=== PATIENT | female | born 1990 | race Caucasian/White ===

== ENCOUNTER 2018-06-15 00:31 | Inpatient (IN) | payer BC, OTHER ==
[~2018-06-15] VITALS: Ht 160 cm; Wt 54.4 kg
--- NOTE | 2018-06-15 01:05 | NUR ---
Pre-Assessment Patient is a 27 yr old female who has presented to [facility] today for a medically supervised withdrawal from Heroin. Pt is awake, alert, lethargic, easily confused, and distracted. Denies any withdrawal symptoms at this time. She states she smokes 1/3 gram daily for the past 2 months and her last use was 06/14/18 around 2300. VS S= BP 105/74, HR 85, RR 18, T 98.2, O2 SATS 97% on RA , 0/10 pain. She is full code, NKA, regular diet Will do a complete assessment when patient arrives on floor, room 309.
[2018-06-15 01:15] VITALS: BP 105/74
[2018-06-15] MEDS ORDERED: MAG HYDROX/AL HYDROX/SIMETH 30 ML LIQUID UDC PO PRN (01:15)
[2018-06-15] MEDS ORDERED: LOPERAMIDE HCL 2 MG CAPSULE PO PRN ×2 (01:15)
[2018-06-15] MEDS ORDERED: ACETAMINOPHEN 325 MG TABLET PO PRN (01:15)
[2018-06-15] MEDS ORDERED: CLONIDINE HCL 0.1 MG TABLET PO PRN (01:15)
[2018-06-15] MEDS ORDERED: ONDANSETRON ODT 4 MG TAB.RAPDIS SL PRN (01:15)
[2018-06-15] MEDS ORDERED: MAGNESIUM HYDROXIDE 30 ML LIQUID UDC PO PRN (01:15)
[2018-06-15] MEDS ORDERED: ONDANSETRON 4 MG/2 ML VIAL IM PRN (01:15)
[2018-06-15] MEDS ORDERED: MIRALAX 17 GM POWD.PACK PO PRN (01:15)
--- NOTE | 2018-06-15 01:16 | NUR ---
COWS 5 Pt awake, oriented, lethargic, guarded, and distracted. Denies signs and symptoms of withdrawal at this time. Continue to monitor.
[2018-06-15 01:45] LABS: *AMPHETAMINE, URINE NEGATIVE (NEGATIVE); *BARBITURATE, URINE NEGATIVE (NEGATIVE); *CANNABINOID, URINE NEGATIVE (NEGATIVE); *COCCAINE, URINE NEGATIVE (NEGATIVE); *OPIATE, URINE POSITIVE (NEGATIVE); *PHENCYCLIDINE SCREEN,URINE NEGATIVE (NEGATIVE)
[2018-06-15 01:52] LABS: *URINE HCG, QUAL NEGATIVE (NEGATIVE)
[2018-06-15 01:57] LABS: ETHANOL < 3 MG/DL (0-0)
[2018-06-15 01:58] LABS: ALANINE AMINOTRANSFERASE 27 U/L (14-59); ALKALINE PHOSPHATASE 15 U/L (50-136); AMYLASE 61 U/L (25-115); ASPARTATE AMINOTRANSFERASE 16 U/L (15-37); BASOPHILS # (AUTO) 0.1 K/uL (0.0-8.0); BASOPHILS % (AUTO) 0.7 % (0.0-2.0); BILIRUBIN,TOTAL 0.2 mg/dL (0.2-1.0); CARBON DIOXIDE 29 mmol/L (21-32); CHLORIDE 103 mmol/L (98-107); CREATININE 0.7 mg/dL (0.6-1.3); EOSINOPHILS # (AUTO) 0.6 K/uL (0.0-0.7); EOSINOPHILS % (AUTO) 8.5 % (0.0-7.0); GLUCOSE 83 mg/dL (74-106); HEMATOCRIT 41.4 % (31.2-41.9); HEMOGLOBIN 14.1 g/dL (10.9-14.3); LIPASE 136 U/L (73-393); LYMPHOCYTES # (AUTO) 2.5 K/uL (20.0-40.0); MAGNESIUM 1.9 mg/dL (1.8-2.4); MEAN CORPUSCULAR HEMOGLOBIN 31.3 uug (24.7-32.8); MEAN CORPUSCULAR HGB CONC 34 g/dL (32.3-35.6); MEAN CORPUSCULAR VOLUME 91.6 fL (75.5-95.3); MONOCYTES # (AUTO) 0.7 K/uL (2.0-10.0); MONOCYTES % (AUTO) 10.2 % (0.0-11.0); NEUTROPHILS # (AUTO) 3.2 K/uL (1.8-8.9); NEUTROPHILS % (AUTO) 45.6 % (38.5-71.5); PLATELET COUNT (AUTO) 272 K/uL (179-408); POTASSIUM 3.7 mmol/L (3.5-5.1); RED BLOOD CELL COUNT(AUTO) 4.52 MIL/uL (3.63-4.92); TOTAL PROTEIN, SERUM 6.5 g/dL (6.4-8.2); UREA NITROGEN, BLOOD 13 mg/dL (7-18); WHITE BLOOD COUNT (AUTO) 7.1 K/uL (3.8-11.8)
--- NOTE | 2018-06-15 02:00 | NUR ---
Admission Note Patient is a 27 yr old female who presents to [facility] for medically supervised withdrawal for a recent relapse of Opiates (Heroin). Pt was escorted on to the unit at 0115 by a female DENTAL TECHNICIAN INSTRUCTOR. Pt is ambulatory with a steady gait. Pt was cooperative with body check and skin check. A small pimple scab noted to mid back, otherwise skin intact. Pt is awake and oriented. Pt is lethargic, withdrawn, guarded, and distracted. Pt is unkempt and odorous. Pt denies any symptoms of withdrawal at this time. VSS BP 105/74, HR 85, RR 16, T 98.2, O2 Sat 97% RA, Pain 0/10, and COWS 5. Pt was oriented to unit, room, and equipment. Substance Abuse History: Heroin 0.33 gm daily for the past 2 months via inhalation. Last use was 06/14/18 about 2300. First use was one time at age 19. At age 25 started daily use for a period of 1.5 years. Eleven months ago was treated at [facility] in [place]. She spent 2 months in rehab, transitioned to sober living for 5 months and remained sober for an additional 2 months. Medical History: Asthma: which she has prescribed inhalers. Does not recall name and did not bring with her. Anxiety/Depression: no prescribed medications Attention Deficit Disorder: which she has prescribed Adderall. Does not recall dose or last use and did not bring with her. 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 Last seizure was 2 months ago. History of fracture to right foot which did not require surgery. History of 5150 in 2012 related to psychiatric episode Denies having a PCP. Admits to Psychiatrist, however does not recall the name. When asked why she came to [facility] today she replied It sucks now. I experimented when i was younger. My family made me get treatment, but now I came on my own. When asked about plan for continued sobriety she replied, I dont want to go to a rehab; I just want to go to meetings. Stated she had a sponsor and attended daily meetings prior to this relapse. Pt is reluctant to talk about family. States she does have support with a male friend. When asked about living arrangements she stated she is homeless and rented a car to get here this evening. Her occupation is a dancer and refused further inquiry. All information was relayed to MD and received orders for PRN medications for increased signs and symptoms of withdrawal. Labs ordered and completed. Educated patient on plan of care: including detox, group therapy, individual therapy, and discharge planning. Pt verbalized understanding and agrees to comply with treatment. Left pt in bed low position, padded side rails up x 2, and call riley in reach. Pt agrees to call for assistance if needed. Will continue to monitor
[2018-06-15 02:09] LABS: THYROID STIMULATING HORMONE 2.266 mIU/mL (0.358-3.740)
--- NOTE | 2018-06-15 04:00 | NUR ---
COWS deferred/Vitals refused Pt resting in bed with eyes closed. Respirations even and unlabored. No signs or symptoms of withdrawal noted. COWS deferred and pt refused vitals. Continue to monitor.
--- NOTE | 2018-06-15 06:39 | NUR ---
End of Shift Endorsing 27 year old female patient admitted 06/15/18 to [facility] for medically supervised withdrawal from Opiates. Pt did not exhibit any signs or symptoms of withdrawal and no PRN medications were given on assembler 1st shift. Last COWS 5@0130. Pt resting with eyes closed. Respirations are even and unlabored. Bed low, side rails up x 2, and call riley in reach. PO intake 355 ml, voided x 1, BM x 0, and slept x 5 hours.
--- NOTE | 2018-06-15 07:30 | NUR ---
START OF SHIFT NOTE Received report from night nurse, 27 year old female admitted for Opioids withdrawals. Patient currently not on any taper but PRN'S available for increased s/s of withdrawal. Per endorsement patient did not receive any PRN and last COWS score was-5, slept for 5 hours. Received patient asleep responsive to verbal and tactile stimuli. Breathing normal no SOB noted respiration even non labored. . Skin intact warm and dry to touch. All safety measures in place. Will cont with plan of care.
[2018-06-15 08:00] VITALS: BP 104/62
[2018-06-15] MEDS: BUPRENORPHINE HCL 2 MG TAB.SUBL SL PRN ×2 (08:43→20:06)
[2018-06-15] MEDS: HYDROXYZINE PAMOATE 25 MG CAPSULE PO PRN ×2 (08:43→20:05)
[2018-06-15] MEDS: METHOCARBAMOL 750 MG TABLET PO PRN ×2 (08:43→20:04)
[2018-06-15] MEDS: IBUPROFEN 400 MG TABLET PO PRN (08:43)
--- NOTE | 2018-06-15 08:43 | NUR ---
COWS ASSESSMENT/ PRN MEDICATIONS Patient presented with flushed face, anxious, restless, agitated, crying, myalgia, lower back pain, restless legs, runny nose, COWS score noted 13. PRN Subutex 4mg SL, Robaxin, Vistaril, Motrin was administered as ordered. Will cont to monitor and reassess. Addendum: 06/15/18 at 1055 by WILIAN WINSLOW LVN Correction-Lower back pain 01/19.
--- NOTE | 2018-06-15 09:13 | NUR ---
SUBUTEX REASSESSMENT COWS score noted 10, patient verbalized Subutex was effective in controlling her s/s of withdrawal.
--- NOTE | 2018-06-15 09:43 | NUR ---
PRN MEDS REASSESSMENT Patient noted resting comfortably in her room stated feeling less anxious, agitated, current lower back pain 2/10, myalgia subsided. Medications were effective.
[2018-06-15] MEDS ORDERED: BUPRENORPHINE HCL 2 MG TAB.SUBL SL PRN (11:45)
[2018-06-15 12:00] VITALS: BP 106/71
--- NOTE | 2018-06-15 12:00 | NUR ---
COWS ASSESSMENT Patient continues to exhibited s/s of anxiety, restless, agitated, anhedonia, stomach cramps, yawning, restless legs, runny nose, COWS score noted 11. Will cont to monitor.
[2018-06-15 16:00] VITALS: BP_SYST 147; BP_SYST 94; BP_DIAS 102; BP_DIAS 57
--- NOTE | 2018-06-15 19:00 | NUR ---
Start of Shift Received 27 year old female patient admitted 06/15/18 to [facility] for medically supervised withdrawal from Opiates. Currently pt has PRN medications available for s/s of withdrawal and to start a 4 day Subutex taper in am 06/16/18. Pt received PRN Subutex, Robaxin, Motrin, and Vistaril on day shift. Last COWS 11 @1600. Pt in dark room resting in bed. Pt is anxious, withdrawn, guarded and flat affect. Bed is low, padded side rails up x 2, and call riley in reach. Will continue to monitor.
--- NOTE | 2018-06-15 19:02 | NUR ---
END OF SHIFT NOTE Gave report to night nurse, 27 year old female admitted for Opioids withdrawal and Subutex taper to be start in AM. PRN available for increased s/s of withdrawal. Skin intact warm and dry tot ouch. Patient presented with sad facial expression, anxious, irritable and disorganized, anhedonia, depressed mood, anxious, agitated, yawning, flushed face, restless, chills, body aches, myalgia, bilateral hand tremors. Patient was given PRN Subutex, Robaxin, Vistaril, Motrin noted to be effective. Patient was not well enough to participates in group today and rested in her room most of the shift. Appetite good, encourage PO fluids as tolerated. Vital signs WNL. Patient denies any SI/HI. Last COWS score was 11 at 1600. All needs attended and met. All safety measures in place. Endorse patient to night nurse in stable condition.
[2018-06-15 20:00] VITALS: BP 115/65
--- NOTE | 2018-06-15 20:00 | NUR ---
COWS 14 Pt anxious, agitated, sweating, chills, stomach cramps, and generalized pain 8/10.
--- NOTE | 2018-06-15 20:04 | NUR ---
PRN Bentyl/Robaxin/Vistaril/Subutex Pt anxious, agitated, sweating, chills, stomach cramps, and generalized pain 03/21. Medications given per order. 14. Will monitor effect.
[2018-06-15] MEDS: DICYCLOMINE HCL 20 MG TABLET PO PRN (20:06)
--- NOTE | 2018-06-15 21:04 | NUR ---
Reassess PRN Bentyl/Robaxin/Vistaril/Subutex Medication effective. Pt resting with eyes closed. Respirations are even and unlabored. Will continue to monitor.
--- NOTE | 2018-06-16 06:45 | NUR ---
End of Shift Endorsing 27 year old female patient admitted 06/15/18 to [facility] for medically supervised withdrawal from Opiates. Currently pt has PRN medications available for s/s of withdrawal and to start a 4 day Subutex taper today 06/16/18. Pt received PRN Subutex, Robaxin, Vistaril, and Bentyl on night shift supervisor. Last COWS 14 @1999. PO intake 1565 ml, voided x 4, BM x 1, and slept 11 hours. Pt resting with eyes closed. Respirations are even and unlabored. Bed is low, padded side rails up x 2, and call riley in reach.
--- NOTE | 2018-06-16 07:30 | NUR ---
START OF SHIFT NOTE Received report from night nurse, 27 year old female admitted for Opioids withdrawals. Patient to be start on 4 days Subutex taper today. Per endorsement patient received PRN Subutex, Bentyl, Robaxin, Vistaril and last COWS score was-14, slept for 11 hours. Received patient asleep responsive to verbal and tactile stimuli. Breathing normal no SOB noted respiration even non labored. Skin intact warm and dry to touch. All safety measures in place. Will cont with plan of care.
[2018-06-16 08:00] VITALS: BP 113/64
[2018-06-16] MEDS: BUPRENORPHINE HCL 2 MG TAB.SUBL SL SCH ×3 (08:51→20:33)
--- NOTE | 2018-06-16 08:57 | NUR ---
COWS ASSESSMENT COWS score noted 13. Patient presented with flushed face, unkempt, anxious, restless, agitated, anhedonia, general body aches, restless legs, runny nose. Patient was given her schedule medications. Will cont to monitor and reassess
[2018-06-16] MEDS ORDERED: 4 DAY TAPER BUPRENORPHINE -SERENITY PROTOCOL SL PRN (09:00)
[2018-06-16] MEDS ORDERED: TUBERCULIN,PURIF.PROT.DERIV. 5 TU/0.1 ML TEST ID ONE (09:00)
[2018-06-16 12:00] VITALS: BP 108/66
[2018-06-16] MEDS: IBUPROFEN 400 MG TABLET PO PRN (13:15)
[2018-06-16] MEDS: HYDROXYZINE PAMOATE 25 MG CAPSULE PO PRN (13:15)
--- NOTE | 2018-06-16 13:15 | NUR ---
PRN MOTRIN/VISTARIL Patient reported headache and increased in anxiety, agitation, restless, sweats. PRN Motrin 400mg PO and Vistaril 50mg PO administered as ordered. Will cont to monitor and reassess. Addendum: 06/16/18 at 1529 by WILIAN WINSLOW LVN Correction- Headache was 11/19.
--- NOTE | 2018-06-16 14:00 | NUR ---
COWS ASSESSMENT Patient continues to exhibited s/s of withdrawal such as anxiety, restless, agitated, anhedonia, general body aches, restless legs, runny nose. Patient was given her schedule medications. Will cont to monitor and reassess.
--- NOTE | 2018-06-16 14:15 | NUR ---
MOTRIN/VISTARIL REASSESSMENT Patient reported medications were effective headache lower to 2/10, and feeling less anxious and agitated.
[2018-06-16 16:00] VITALS: BP 109/68
[2018-06-16] MEDS: METHOCARBAMOL 750 MG TABLET PO PRN (16:34)
--- NOTE | 2018-06-16 16:34 | NUR ---
PRN ROBAXIN Patient c/o of myalgia 12/19. PRN Robaxin 750mg PO given as ordered. Will cont to monitor.
--- NOTE | 2018-06-16 17:34 | NUR ---
ROBAXIN REASSESSMENT Patient reported medication was effective myalgia lowert o 09/21
--- NOTE | 2018-06-16 19:01 | NUR ---
END OF SHIFT NOTE Gave report to night nurse, 27 year old female admitted for Opioids withdrawal and Subutex taper started this morning tolerating well. Patient appears flushed, odors, sad facial expression, anxious, irritable and disorganized, anhedonia, depressed mood, anxious, agitated, yawning, flushed face, restless, chills, body aches, myalgia, bilateral hand tremors. Patient was given PRN Vistaril, Motrin, Robaxin noted to be effective. Patient reported that "she is feeling weak and did not want to go to the groups". Educated patient to attend group and activities to learn new coping skills, patient verbalized understanding. Appetite good, encourage PO fluids as tolerated. Vital signs WNL. Patient denies any SI/HI. Skin intact warm and dry to touch. Last COWS score was 11 at 1600. All needs attended and met. All safety measures in place. Endorse patient to night nurse in stable condition.
--- NOTE | 2018-06-16 19:30 | NUR ---
START OF SHIFT Received patient lying in bed with eyes closed and respirations even and unlabored. Per endorsement, patient is a 27 yr old admit with a past medical history asthma, depression, ADD, and anxiety. Patient appears drowsy and with low energy. Patient also noted to be in depressed mood and appears disheveled. She was admitted for ETOH withdrawal and is on a 5 day Subutex taper. Her last COWS score was 11 @ 1600. Will continue to monitor.
[2018-06-16 20:11] VITALS: BP 94/58
--- NOTE | 2018-06-17 | NUR ---
COWS AND VITALS DEFERRED Patient noted to be lying in bed with eyes closed and respirations even and unlabored. No apparent S/S of distress or pain noted. Vitals signs refused and COWS assessment deferred. Will continue to monitor.
[2018-06-17 04:00] VITALS: BP 99/61
--- NOTE | 2018-06-17 04:00 | NUR ---
COWS=9 Patient continues to be isolative, melancholic and in a depressed mood. Patient verbalized feeling "tired and just having no energy". Patient also with tremors and anxiety.
[2018-06-17 04:08] LABS: HEPATITIS B SURFACE AG Negative (Negative)
--- NOTE | 2018-06-17 07:03 | NUR ---
END OF SHIFT Patient is noted to be lying in bed with eyes closed and even, unlabored respirations. Pt is a 27 year old female with a past medical history of asthma, depression, ADD, and anxiety. No PRNs administered this shift. No signs of symptoms of distress or pain noted. Patient continues her 5 day subutex taper. Last COWS was 9 at 0400. Bilateral side rails up, bed in a locked low position. Patient slept for 9 hours. Endorsed to oncoming AM nurse.
--- NOTE | 2018-06-17 07:25 | NUR ---
Start Of Shift Patient is a 27 yr old female who was admitted to [facility] on 06/15/18 for a medically supervised withdrawal from Opiates ( heroin), she has been placed on a5 day Subutex taper and this is day 2. No PRN medications were required or requested on PM shift, she slept for 9 hours and last COWS was 9. Currently she is asleep in bed, breathing even and unlabored, side rails upx2 and call light within reach. Continue to follow MD finley of care and offer support and encouragement as needed.
[2018-06-17 08:03] VITALS: BP 96/74
[2018-06-17] MEDS: METHOCARBAMOL 750 MG TABLET PO PRN (08:36)
[2018-06-17] MEDS: HYDROXYZINE PAMOATE 25 MG CAPSULE PO PRN ×2 (08:36→14:31)
--- NOTE | 2018-06-17 08:38 | NUR ---
COWS 9/ PRN Patient displays myalgia, restlessness, increased anxiety, stuffy nose and fatigue Vistaril 50mg PO and [id number] PO PRN given
[2018-06-17] MEDS ORDERED: BUPRENORPHINE HCL 2 MG TAB.SUBL SL SCH (09:00)
--- NOTE | 2018-06-17 09:38 | NUR ---
PRN Reassess Patient states Vistaril 50mg PO PRN was effective in reducing her anxiety and Robaxin 750mg PO PRN was effective in relieve her muscle aches.
[2018-06-17 12:00] VITALS: BP 88/55
--- NOTE | 2018-06-17 12:13 | NUR ---
COWS 9 Patient displays myalgia, restlessness, increased anxiety, stuffy nose and fatigue Vistaril 50mg PO and [id number] PO PRN given @ 0840 with positive results
[2018-06-17] MEDS: BUPRENORPHINE HCL 2 MG TAB.SUBL SL SCH ×2 (14:31→20:56)
[2018-06-17] MEDS: IBUPROFEN 400 MG TABLET PO PRN (14:31)
--- NOTE | 2018-06-17 14:34 | NUR ---
PRN Motrin 400mg PO given for muscle aches 4/10 Vistaril 50mg PO given for anxiety
--- NOTE | 2018-06-17 15:35 | NUR ---
PRN Reassess Patient states medications were effective in reducing muscle aches and anxiety
--- NOTE | 2018-06-17 15:54 | NUR ---
Therapist prompted client to attend group therapy.
[2018-06-17 16:00] VITALS: BP 83/51
--- NOTE | 2018-06-17 16:00 | NUR ---
COWS 9 Patient displays myalgia, restlessness, increased anxiety, stuffy nose and fatigue Motrin 400mg Po given for muscle aches and Vistaril 50mg Po PRN was given @ 1435 with positive results
--- NOTE | 2018-06-17 18:55 | NUR ---
End Of Shift Patient is a 27 yr old female who was admitted to [facility] on 06/15/18 for a medically supervised withdrawal from Opiates ( heroin ), she continues on a 5 day Subutex taper. PRN medications given this shift: Vistaril x2, Robaxin and Motrin. She displays a flat depressed affect, avoids eye contact and isolates in her room, her withdrawal symptoms include stuffy nose, aching joints and increased anxiety and irritability and she can be emotionally volatile at times. She had a fluid intake of 2163ML, 3 Voids and 0 BM, her last COWS was 9 @ 1600. Continue to follow MD plan alejandro care and offer support and encouragement. [facility]ed to [facility] shift [facility].
--- NOTE | 2018-06-17 19:30 | NUR ---
START OF SHIFT Received patient lying in bed with eyes closed and respirations even and unlabored. Vitals taken and are within normal limits. Per endorsement, client is a 27 year old female admitted for medically supervised detox of heroin with secondary diagnoses of asthma, depression, anxiety, and ADD. Additionally per endorsement, client slept for a majority of the AM shift. Patient is on her second out of 5 days of Subutex taper. Will continue to monitor.
[2018-06-17 20:00] VITALS: BP 100/54
--- NOTE | 2018-06-17 20:00 | NUR ---
COWS=9 Patient continues to reports symptoms of myalgia, stuffy nose, fatigue, anxiety, restlessness, and agitation. Will continue to monitor.
--- NOTE | 2018-06-18 | NUR ---
COWS AND VITALS DEFERRED Patient noted lying in bed with eyes closed and even, unlabored respirations. Bed in a low, locked position with bilateral side rails up. Vital signs refused and COWS assessment deferred. Will continue to monitor.
--- NOTE | 2018-06-18 06:49 | NUR ---
PRN RE-ASSESSMENT Patient is sleeping. RR:14. Respirations are even and unlabored. PRN Afrin Nasal 0.05% [place] for nasal congestion administered for nasal congestion at 0549 was effective. Safe and calm environment provided. All needs met. Safety measures in place: Call light within reach, bed is in lowest position, and locked, padded bedrails up bilaterally. Will continue to monitor.
--- NOTE | 2018-06-18 07:09 | NUR ---
END OF SHIFT Patient is noted lying in bed with eyes closed and respirations even and unlabored. No complaints of distress or pain raised throughout the shift. Patient slept for 10 hours and 45 minutes. Patient noted to be lethargic, apathetic to conversation and care, and drowsy for majority of the shift. Last COWS score was 9 taken at 2000. Endorsed to oncoming AM shift nurse.
--- NOTE | 2018-06-18 07:15 | NUR ---
Start of Shift. Pt. is a 27 y/o female admitted for the medically managed withdrawal from Opiates. Pt. was placed on a 5 day Subutex taper to manage withdrawal symptoms. Endorse from previous shift pt. is isolative and withdrawn with poor visibility on the unit. Received pt. in room. Pt. in bed with eyes closed. Pt. appears disheveled with linens cluttered all about her bed and falling of the sides. No signs of SOB noted. Safety measures in place. Will continue to monitor pt.s behavior for safety.
[2018-06-18 08:00] VITALS: BP 101/59
--- NOTE | 2018-06-18 08:00 | NUR ---
COWS Assessment COWS of 8. Pt. is room laying in bed presenting with anxiety, body aches, nasal congestion, and irritability. Will give medications as ordered will continue to monitor pt.'s behavior for safety.
[2018-06-18] MEDS: BUPRENORPHINE HCL 2 MG TAB.SUBL SL SCH ×3 (08:43→20:04)
--- NOTE | 2018-06-18 10:38 | NUR ---
Therapist prompted client to attend group therapy sessions, and client stated that she is not interested.
[2018-06-18 12:00] VITALS: BP 100/56
--- NOTE | 2018-06-18 12:00 | NUR ---
COWS Assessment COWS of 8. Pt. is room laying in bed presenting with anxiety, body aches, nasal congestion, and irritability. Pt. compliant with medication regiment and treatment plan. Will continue to monitor pt.'s behavior for safety.
[2018-06-18] MEDS: OXYMETAZOLINE NASAL 0.05% 15 ML SPRAY NS PRN (15:06)
[2018-06-18] MEDS: METHOCARBAMOL 750 MG TABLET PO PRN ×2 (15:10→22:06)
[2018-06-18] MEDS: IBUPROFEN 400 MG TABLET PO PRN (15:10)
[2018-06-18] MEDS: HYDROXYZINE PAMOATE 25 MG CAPSULE PO PRN ×2 (15:10→22:06)
--- NOTE | 2018-06-18 15:10 | NUR ---
PRN Assessment Pt. in room complaining of allergy symptoms. nasal congestion, body aches and anxiety. PRN Vistaril, Robaxin, Motrin, and Afrin nasal spay given at this time to manage symptoms. Will continue to monitor pt.'s behavior for safety and medication effectiveness.
--- NOTE | 2018-06-18 15:50 | NUR ---
PRN Re-Assessment Pt. in room and reports a reduction in symptoms. Medication effective. Will continue to monitor pt.'s behavior for safety.
[2018-06-18 16:00] VITALS: BP 113/75
--- NOTE | 2018-06-18 16:00 | NUR ---
COWS Assessment COWS of 9. Pt. is room laying in bed presenting with anxiety, body aches, nasal congestion, and irritability. Pt. compliant with treatment plan and medication regiment. Will continue to monitor pt.'s behavior for safety.
--- NOTE | 2018-06-18 19:02 | NUR ---
START OF SHIFT NOTE: Endorsed patient is a 27 year old female presented for Opioid (Heroin) withdrawal, continues ordered 5 day Subutex taper since 06/16/2018, which tolerated well. Withdrawal symptoms will be monitoring closely. Patient is alert and oriented x4: Person, Place, Situation, and Time, noted with anxious mood and flat affect, reports NKA, Regular Diet, is on Full Code, Seizure and Fall Precautions. PMH: Anxiety, Depression, ADD, Asthma, History of Psychogenic Seizure r/t Stress, with last episode 2 months ago. Last COWS=9 at 1600: Throughout the day shift patient experienced anxiety, agitation, depression, irritability, nervousness, enlarged bilateral pupils, nasal congestion, myalgia, mild generalized body and muscle ache, bilateral tremors that can be felt not observe, sweating, restlessness, fatigue, and yawning. PRN Afrin Nasal 0.05% [place] for nasal congestion administrated at 1506, PRN Motrin 400 mg PO administrated for pain at 1510, PRN Robaxin 750 mg PO administrated for myalgia at 1510, PRN Vistaril 50 mg PO administrated for anxiety at 1510, and were effective per outgoing day shift nurse report. Patient remains compliant with treatment, medications, and diet regimen. VSWNL. Respirations are unlabored and even, Abdomen is soft and non-tender, Bowel Sounds are active in all four quadrants, Skin is intact, warm and dry to touch. Encouraged to intake fluids as tolerated. Encouraged to attend group activities. All needs met. Safe and calm environment provided. Safety measures in place: Call light within reach, bed in lowest position, and locked, padded bed rails up bilaterally. Will continue to monitor closely.
--- NOTE | 2018-06-18 19:02 | NUR ---
End of Shift Pt. is a 27 y/o female admitted for the medically managed withdrawal from Opiates. Pt. was placed on a 5 day Subutex taper to manage withdrawal symptoms. Throughout shift presented with anxiety, body aches, agitation, restlessness, and a volatile mood. Safety measures in place. Will endorse pt.'s care to oncoming shift.
[2018-06-18 20:00] VITALS: BP 101/68
--- NOTE | 2018-06-18 20:00 | NUR ---
COWS ASSESSMENT COWS=11: Patient experienced anxiety, agitation, depression, irritability, nervousness, enlarged bilateral pupils, nasal congestion, bilateral tremors that can be felt not observe, sweating, restlessness, fatigue, and yawning. Scheduled and PRN medications will be administrated as ordered. Safe and calm environment provided. Encouraged to intake fluids as tolerated. All needs met. Safety measures in place: Call light within reach, bed in lowest position, and locked, padded bed rails up bilaterally. Will continue to monitor closely.
[2018-06-18] MEDS: diphenhydrAMINE 50 MG CAPSULE PO PRN (20:04)
--- NOTE | 2018-06-18 20:04 | NUR ---
PRN BENADRYL PO ADMINISTRATION: PRN Benadryl 50 mg PO administrated for insomnia at 2004, as ordered. Patient tolerated well. Re-assessment will be done in one hour. Encouraged to intake fluids as tolerated. Safe and calm environment provided. All needs met. Safety measures in place: Call light within reach, bed is in lowest position, and locked, padded bedrails up bilaterally. Will continue to monitor.
--- NOTE | 2018-06-18 21:04 | NUR ---
PRN RE-ASSESSMENT Patient is sleeping. RR:14. Respirations are even and unlabored. PRN Benadryl 50 mg PO administrated for insomnia at 2003 were effective. Safe and calm environment provided. All needs met. Safety measures in place: Call light within reach, bed is in lowest position, and locked, padded bedrails up bilaterally. Will continue to monitor.
--- NOTE | 2018-06-18 22:06 | NUR ---
PRN ROBAXIN PO AND PRN VISTARIL PO ADMINISTRATION: PRN Robaxin 750 mg PO administrated for myalgia at 2206, and PRN Vistaril 50 mg PO administrated for anxiety at 2206, as ordered. Patient tolerated well. Re-assessment will be done in one hour. Encouraged to intake fluids as tolerated. Safe and calm environment provided. All needs met. Safety measures in place: Call light within reach, bed is in lowest position, and locked, padded bedrails up bilaterally. Will continue to monitor.
--- NOTE | 2018-06-18 23:06 | NUR ---
PRN RE-ASSESSMENT Patient is sleeping. RR:15. Respirations are even and unlabored PRN Robaxin 750 mg PO administrated for myalgia at 2206,and PRN Vistaril 50 mg PO administrated for anxiety at 2206, were effective. Safe and calm environment provided. All needs met. Safety measures in place: Call light within reach, bed is in lowest position, and locked, padded bedrails up bilaterally. Will continue to monitor.
--- NOTE | 2018-06-19 | NUR ---
VS REFUSED, COWS DEFERRED VS refused and COWS deferred at 0000 due patient sleeping. Respirations are unlabored and even. RR:17. Assessment will be done and COWS scored while patient will awake. Safe and calm environment provided. All needs met. Safety measures in place: Call light within reach, bed is in lowest position, and locked, padded bedrails up bilaterally. Will continue to monitor.
[2018-06-19 04:00] VITALS: BP 106/69
--- NOTE | 2018-06-19 04:00 | NUR ---
COWS ASSESSMENT COWS=10 ay 0400: Patient noted with anxiety, agitation, depression, irritability, nervousness, enlarged bilateral pupils, nasal congestion, bilateral tremors that can be felt not observe, mild generalized body aches, myalgia, sweating, restlessness, fatigue, and yawning. Safe and calm environment provided. Encouraged to intake fluids as tolerated. All needs met. Safety measures in place: Call light within reach, bed in lowest position, and locked, padded bed rails up bilaterally. Will continue to monitor closely.
[2018-06-19] MEDS: OXYMETAZOLINE NASAL 0.05% 15 ML SPRAY NS PRN ×2 (05:49→20:47)
--- NOTE | 2018-06-19 05:49 | NUR ---
PRN ADMINISTRATION PRN Afrin Nasal 0.05% [place] for nasal congestion administrated at 0549,as ordered. Patient tolerated well. Re-assessment will be done in one hour. Encouraged to intake fluids as tolerated. Safe and calm environment provided. All needs met. Safety measures in place: Call light within reach, bed is in lowest position, and locked, padded bedrails up bilaterally. Will continue to monitor.
--- NOTE | 2018-06-19 07:15 | NUR ---
Start of Shift Pt. is a 27 y/o female admitted for the medically managed withdrawal from Opiates. Pt. was placed on a 5 day Subutex taper to manage withdrawal symptoms. Endorse from previous shift pt. presented with anxiety, agitation, body aches, and restlessness. Received pt. in room. Pt. in bed with her eyes closed. No signs of acute distress noted. Safety measures in place. Will continue to monitor pt.s behavior for safety.
--- NOTE | 2018-06-19 07:23 | NUR ---
END OF SHIFT NOTE: This report given for patient, a 27 year old female, admitted for Opioid (Heroin) withdrawal, and second day continues ordered 5 day Subutex taper, which tolerated well. Withdrawal symptoms was closely monitored. Patient is alert and oriented x4, cooperative, with stable gate, and soft clear speech. Initial COWS=11 at 2000. The most recent COWS=10 at 0400: Patient noted with anxious mood and depressive/flat affect. Patient presented with anxiety, agitation, depression, irritability, nervousness, enlarged bilateral pupils, nasal congestion, myalgia, mild generalized body and muscle ache, bilateral tremors that can be felt not observe, sweating, restlessness, fatigue, and yawning. PRN Benadryl 50 mg PO administrated for insomnia at 2003, PRN Robaxin 750 mg PO administrated for myalgia at 2205, PRN Vistaril 50 mg PO administrated for anxiety at 2205, PRN Afrin Nasal 0.05% [place] for nasal congestion administrated at 0549, and were effective. Patient remains compliant with treatment, medications, and diet regimen. VSWNL. Respirations are unlabored and even. Skin is intact, warm and dry to touch. Encouraged patient to verbalized his feelings. Encouraged to intake fluids as tolerated. Encouraged to attend group activities. Patient slept for 8 hours, intake 1,092 ml, voided x2. Safe and calm environment provided. All needs met. Safety measures in place: Call light within reach, bed is in lowest position, and locked, padded bedrails up bilaterally. Endorsed to day shift nurse.
[2018-06-19 08:00] VITALS: BP 83/49
--- NOTE | 2018-06-19 08:00 | NUR ---
COWS Assessment COWS of 8. Pt. in room presenting anxiety, restlessness, tremors, and stomach cramps. Will give medications as ordered. Will continue to monitor pt.'s behavior for safety.
[2018-06-19] MEDS: HYDROXYZINE PAMOATE 25 MG CAPSULE PO PRN ×2 (08:43→20:48)
[2018-06-19] MEDS: IBUPROFEN 400 MG TABLET PO PRN (08:43)
[2018-06-19] MEDS: METHOCARBAMOL 750 MG TABLET PO PRN ×2 (08:43→20:48)
[2018-06-19] MEDS: DICYCLOMINE HCL 20 MG TABLET PO PRN (08:43)
--- NOTE | 2018-06-19 08:43 | NUR ---
PRN Medications Pt. in room complaining of body aches, anxiety, and stomach cramps. PRN Bentyl, Robaxin, Motrin, and Vistaril. Will continue to monitor pt.'s behavior for safety and medication effectiveness.
[2018-06-19] MEDS ORDERED: BUPRENORPHINE HCL 2 MG TAB.SUBL SL SCH (09:00)
--- NOTE | 2018-06-19 09:30 | NUR ---
PRN Re-Assessment Pt. in room and reports a decrease in symptoms. Medication effective. Will continue to monitor for safety.
[2018-06-19 12:00] VITALS: BP 111/70
--- NOTE | 2018-06-19 12:00 | NUR ---
COWS Assessment COWS of 8. Pt. in room presenting anxiety, restlessness, tremors, and a flat affect. Pt. compliant with medication regiment and treatment plan. Will continue to monitor pt.'s behavior for safety.
[2018-06-19] MEDS ORDERED: HYDR-3895 PO (14:35)
[2018-06-19] MEDS ORDERED: CLON0.1T14 PO (14:35)
[2018-06-19] MEDS ORDERED: DICY20TA28 PO (14:35)
[2018-06-19] MEDS ORDERED: METH-406 PO (14:35)
[2018-06-19] MEDS ORDERED: IBUP-1953 PO (14:35)
[2018-06-19] MEDS ORDERED: DIPH50CA37 PO (14:35)
[2018-06-19 16:00] VITALS: BP 111/73
--- NOTE | 2018-06-19 16:00 | NUR ---
COWS Assessment COWS of 7. Pt. in room presenting anxiety, restlessness, tremors, and a flat affect. Pt. compliant with medication regiment and treatment plan. Will continue to monitor pt.'s behavior for safety.
--- NOTE | 2018-06-19 19:05 | NUR ---
START OF SHIFT NOTE: Presented patient, 27 year old female, completed 5 day Subutex Taper ordered for Opioid (Heroin) withdrawal. The patient tolerated well. Withdrawal symptoms will be closely monitoring. The patient scheduled for discharge tomorrow at 0930. Last COWS=7 at 1617: During the day shift patient experienced anxiety, agitation, depression, irritability, generalized body aches, myalgia, nasal congestion, stomach cramps, nervousness, sweating, tremors that can be felt, not observe, and restlessness. PRN Motrin 400 mg PO administrated for body pain at 0843, PRN Robaxin 750 mg PO administrated for myalgia at 0843, PRN Vistaril 50 mg PO administrated for anxiety at 0843, and were effective per day shift nurse report. Patient remains compliant with treatment, medications, and diet regimen. Respirations are even and unlabored. Skin intact, warm, and dry to touch. Encouraged to fluids intake as tolerated. Encouraged to attend group activities. All needs met. Safety measures in place: Call light within reach, bed is locked, and in the lowest position, and padded bedrails up x2. Safe and calm environment provided. Endorsed by day shift nurse. Will continue to monitor closely.
--- NOTE | 2018-06-19 19:05 | NUR ---
End of Shift Pt. is a 27 y/o female admitted for the medically managed withdrawal from Opiates. Pt. was placed on a 4 day Subutex taper to manage withdrawal symptoms. Throughout shift pt. presented with anxiety, agitation, body aches, and restlessness. No signs of acute distress noted. Safety measures in place. Endorse pt.s care to oncoming shift.
[2018-06-19 20:00] VITALS: BP 106/59
--- NOTE | 2018-06-19 20:00 | NUR ---
COWS ASSESSMENT COWS=8 at 2000: Patient experienced anxiety, agitation, depression, irritability, myalgia, nasal congestion, nervousness, sweating, tremors that can be felt, not observe, and restlessness. Safe and calm environment provided. Encouraged to intake fluids as tolerated. All needs met. Safety measures in place: Call light within reach, bed in lowest position, and locked, padded bed rails up bilaterally. Will continue to monitor closely.
[2018-06-19] MEDS: diphenhydrAMINE 50 MG CAPSULE PO PRN (20:47)
--- NOTE | 2018-06-19 20:48 | NUR ---
PRN ROBAXIN PO, PRN BENADRYL PO, PRN AFRIN NASAL 0.05% [place], AND PRN VISTARIL PO ADMINISTRATION: PRN Robaxin 750 mg PO administered for myalgia at 2047, PRN Vistaril 50 mg PO administered for anxiety at 2047, PRN Afrin Nasal 0.05% [place] for nasal congestion administered at 2047, and PRN Benadryl 50 mg PO administered for insomnia at 2047 as ordered. Patient tolerated well. Re-assessment will be done in one hour. Encouraged to intake fluids as tolerated. Safe and calm environment provided. All needs met. Safety measures in place: Call light within reach, bed is in lowest position, and locked, padded bedrails up bilaterally. Will continue to monitor.
--- NOTE | 2018-06-19 21:48 | NUR ---
PRN RE-ASSESSMENT Patient is sleeping. RR:14. Respirations are even and unlabored. PRN Robaxin 750 mg PO administered for myalgia at 2047, PRN Vistaril 50 mg PO administered for anxiety at 2047, PRN Afrin Nasal 0.05% [place] for nasal congestion administered at 2047, and PRN Benadryl 50 mg PO administered for insomnia at 2047 were effective. Safe and calm environment provided. All needs met. Safety measures in place: Call light within reach, bed is in lowest position, and locked, padded bedrails up bilaterally. Will continue to monitor.
--- NOTE | 2018-06-20 | NUR ---
VS REFUSED, COWS DEFERRED VS refused and COWS deferred at 0000 due patient sleeping. Assessment will be done and COWS scored while patient will awake. Safe and calm environment provided. All needs met. Safety measures in place: Call light within reach, bed is in lowest position, and locked, padded bedrails up bilaterally. Will continue to monitor.
--- NOTE | 2018-06-20 04:00 | NUR ---
VS REFUSED, COWS DEFERRED VS refused and COWS deferred at 0400 due patient sleeping. Assessment will be done and COWS scored while patient will awake. Safe and calm environment provided. All needs met. Safety measures in place: Call light within reach, bed is in lowest position, and locked, padded bedrails up bilaterally. Will continue to monitor.
--- NOTE | 2018-06-20 07:06 | NUR ---
END OF SHIFT NOTE: Endorsed patient, 27 year old female, presented for Opioid (Heroin) withdrawal, completed ordered 5 day Subutex taper. Patient tolerated well. Patient appears alert and oriented x4, cooperative, remains compliant with treatment, medications, and diet regimen. Patent noted with anxious mood and depressive/flat affect. The most recent COWS=8 at 1999. During my shift patient continues experienced withdrawal symptoms such as anxiety, agitation, depression, irritability, nervousness, nasal congestion, myalgia, bilateral tremors that can be felt not observe, sweating, restlessness, and fatigue. PRN Robaxin 750 mg PO administered for myalgia at 2047, PRN Vistaril 50 mg PO administered for anxiety at 2047, PRN Afrin Nasal 0.05% [place] for nasal congestion administered at 2047, PRN Benadryl 50 mg PO administered for insomnia at 2047, and were effective. Respirations are unlabored and even. Skin is intact, warm and dry to touch. Encouraged patient to verbalized her feelings, and reassuring provided. Encouraged to intake fluids as tolerated. Patient scheduled for discharge today at 0930. Patient slept for 9 hours, intake 710 ml, voided x2. Safe and calm environment provided. All needs met. Safety measures in place: Call light within reach, bed is in lowest position, and locked, padded bedrails up bilaterally. Endorsed to day shift nurse.
--- NOTE | 2018-06-20 07:30 | NUR ---
Start of Shift Attorney received report on 27 year old female admitted to [facility] on 06/15/18 for medical management of Opiate(Heroin) withdrawals. Pt is scheduled for discharge this morning, with no discharge location, due to pts hesitation on discharging to RTC. Pt has completed a 5 day Subutex taper, with last COWS 8, per NOC report. Pt endorses NKA, full code and regular diet. Pt with PMH of asthma with a history of seizure 2 months ago. Pt endorses a PPH of anxiety, depression and ADD. Pt was administered Robaxin(spasms), Vistaril(anxiety), Benadryl(insomnia) and Nasal [place](stuffiness) as PRN medications on NOC per report. Attorney encounters pt in pts room with pt preparing to discharge, packing clothes. Pt is A/O x4 and makes her needs known. Pt with a clear thought process and clear speech pattern with a soft tone. Pt is anxious and restless. Bed in low position with wheels locked and side rails up x2. Will continue to monitor, support and encourage according to plan of care.
[2018-06-20 08:30] VITALS: BP 104/63
--- NOTE | 2018-06-20 08:30 | NUR ---
CIWA 7 Pt is anxious and restless regarding discharge. Pt is pacing in hallway and at nurse's station demanding discharge. Will continue to monitor, support and encourage according to plan of care.
--- NOTE | 2018-06-20 09:56 | NUR ---
Discharge Assessment Pt is A/O x4 and able to make needs known. Pt with a clear thought process and clear speech pattern. Pt is anxious and restless, demanding and lacks insight into present condition. Pt with an anxious affect and depressed mood. Pt is demanding discharge to home, with IOP at [facility]. Pt statesing pts dad is awaiting for pts discharge in hospital lobby. Pt denies SI/HI and A/VH. Pt has stable VS and last COWS 7. Pt is educated on discharge educational material and medications. Pt educated on name, route, dose, time and indication of all prescribed medications. Pt was provided with prescriptions and all MD discharge orders, notes and recommendations. Pt denies any further comments, questions or concerns. Pt is discharged via ambulation to main lobby where father meets pt for transportation to pts residence.
== END 2018-06-20 09:56 | disposition home or self-care (01) | DRG 895 ==
LOC: SRC 00:31
PROVIDERS: ADMIT Family Medicine Addiction Medicine; ATTEND Family Medicine Addiction Medicine
PROC: HZ2ZZZZ Detoxification Services for Substance Abuse Treatment (ICD-10-PCS; principal; 2018-06-15)
PROC: HZ31ZZZ Individual Counseling for Substance Abuse Treatment, Behavioral (ICD-10-PCS; 2018-06-18)
DX: F11.23 Opioid dependence with withdrawal (principal); G40.89 Other seizures; F90.9 Attention-deficit hyperactivity disorder, unspecified type; F41.1 Generalized anxiety disorder; Z59.0 Homelessness; J45.909 Unspecified asthma, uncomplicated; J31.0 Chronic rhinitis; F32.9 Major depressive disorder, single episode, unspecified
CPT/HCPCS: 36415; 80307; 80361; 83690; 83735; 84443; 84703; 85025; 86592; 86705; 86803; 87340; 87806; G0480; Q0163